=== PATIENT | male | born 1940 | race Caucasian/White ===

== ENCOUNTER 2017-01-25 01:44 | Observation (INO) | payer SELFPAY ==
[2017-01-25 01:53] VITALS: BMI 21.5
[2017-01-25] MEDS ORDERED: Morphine 2 mg/ml ISec IVP STA (01:58)
[2017-01-25] MEDS ORDERED: Pantoprazole 40 MG in Sodium Chloride 0.9% 100 ML IV STA (01:58)
--- NOTE | 2017-01-25 02:13 | ED PDOC ---
Arrival/HPI - General Chief Complaint: Abdominal Pain Time Seen by Provider: 01/25/17 01:46 Historian: Patient, Other - History of Present Illness Narrative History of Present Illness (Text): 01/25/17 01:52 76 year old male, presents to the Emergency department, accompanied by a family friend, with complaints of shortness of breath, which began 45 minutes prior to arrival. Friend also reports patient was at a barbeque earlier yesterday when he began experiencing abdominal pain. The patient denies any fever, back pain, chest pain, or any other complaints at this time. Time/Duration: 4-6 hours Symptom Onset: Sudden Symptom Course: Unchanged Activities at Onset: Rest Context: Home Past Medical History - Provider Review Nursing Documentation Reviewed: Yes - Psychiatric Hx Substance Use: No Family/Social History - Physician Review Nursing Documentation Reviewed: Yes Family/Social History: Unknown Family HX Smoking Status: Unknown If Ever Smoked Hx Alcohol Use: No Hx Substance Use: No Allergies/Home Meds Allergies/Adverse Reactions: Allergies No Known Allergies Allergy (Verified 01/25/17 01:53) Home Medications: Home Meds Medication Instructions Recorded Confirmed Unobtainable 01/25/17 01/25/17 Review of Systems - Physician Review All systems were reviewed & negative as marked: Yes - Review of Systems Constitutional: absent: Fevers Respiratory: SOB Cardiovascular: absent: Chest Pain Gastrointestinal: Abdominal Pain Musculoskeletal: absent: Back Pain Physical Exam Vital Signs Temp Pulse Resp BP Pulse Ox 01/25/17 04:54 57 L 17 127/80 98 01/25/17 01:53 97.4 F L 72 18 148/89 99 Temperature: Afebrile Blood Pressure: Normal Pulse: Regular Respiratory Rate: Normal Appearance: Positive for: Well-Appearing, Non-Toxic, Comfortable Pain Distress: None Mental Status: Positive for: Alert and Oriented X 3 - Systems Exam Head: Present: Atraumatic, Normocephalic Pupils: Present: PERRL Extroacular Muscles: Present: EOMI Conjunctiva: Present: Normal Mouth: Present: Moist Mucous Membranes Neck: Present: Normal Range of Motion Respiratory/Chest: Present: Clear to Auscultation. No: Respiratory Distress, Accessory Muscle Use Cardiovascular: Present: Regular Rate and Rhythm, Normal S1, S2. No: Murmurs Abdomen: Present: Tenderness (+ Tenderness to the RUQ ), Normal Bowel Sounds. No: Distention, Peritoneal Signs Back: Present: Normal Inspection Upper Extremity: Present: Normal Inspection. No: Cyanosis, Edema Lower Extremity: Present: Normal Inspection. No: Edema Neurological: Present: GCS=15, CN II-XII Intact, Speech Normal Skin: Present: Warm, Dry, Normal Color. No: Rashes Psychiatric: Present: Alert, Oriented x 3, Normal Insight, Normal Concentration Medical Decision Making ED Course and Treatment: 01/25/17 01:52 Impression: 76 year old male with shortness of breath and abdominal pain. Differential Diagnosis included but are not limited to: abdominal pain vs. cholecystitis vs. gastroenteritis Plan: -- EKG -- VBG -- Abd & Pelvis CT Scan -- Chest X-ray -- Labs -- Urinalysis -- Morphine, Pantoprazole, Zofran -- Reassess and disposition Progress Notes: 01/25/17 04:05 Reviewed radiology, CT Abdomen and Pelvis shows:1. There is cholelithiasis. No adjacent stranding or fluid. Correlate with physical exam. If there is clinical suspicion for acute cholecystitis, consider ultrasound. 2. There are bilateral renal cysts, including a 60 mm left renal cyst. 3. The prostate gland is enlarged. 01/25/17 04:[address] Elizondo, who is aware and agrees with plan. Accepts pt in to hospitalist service. Pt will go to [facility] observation for abdominal pain. assistant vice president notified. 01/25/17 04:26 Reviewed Chest X-Ray, shows no acute findings. \ - Lab Interpretations Lab Results: 01/25/17 02:15 01/25/17 02:15 Lab Results 01/25/17 02:47: Urine Color Yellow, Urine Appearance Clear, Urine pH 6.0, Ur Specific [place] 1.020, Urine Protein Trace H, Urine Glucose (UA) Negative, Urine Ketones Negative, Urine Blood Negative, Urine Nitrate Negative, Urine Bilirubin Negative, Urine Urobilinogen 0.2, Ur Leukocyte Esterase Negative, Urine RBC 0 - 2, Urine WBC 0 - 2, Ur Epithelial Cells 0 - 2 01/25/17 02:15: Iron 47, TIBC 249 L, % Saturation 19 L 01/25/17 02:15: Hepatitis A IgM Ab Negative, Hep Bs Antigen Negative, Hep B Core IgM Ab Negative, Hepatitis C Antibody Negative 01/25/17 02:15: TSH 3rd Generation 2.49 01/25/17 02:15: Hemoglobin A1c 4.7 01/25/17 02:15: Ferritin 105.0, Triglycerides 65, Cholesterol 145, LDL Cholesterol Direct 95, HDL Cholesterol 40, Vitamin B12 189 L, Folate 6.3 01/25/17 02:15: pO2 39, VBG pH 7.42, VBG pCO2 44.0, VBG HCO3 28.5 H, VBG Total CO2 29.9 H, VBG O2 Sat (Calc) 81.0 H, VBG Base Excess 3.4 H, VBG Potassium 4.2, Sodium 140.0, Chloride 107.0, Glucose 106, Lactate 1.9, FiO2 21.0, Venous Blood Potassium 4.2 01/25/17 02:15: Sodium 141, Chloride 106, Potassium 4.0, Carbon Dioxide 25, Anion Gap 14, BUN 26 H, Creatinine 1.9 H, Est GFR ( Amer) 42, Est GFR ( Non-Af Amer) 35, Random Glucose 101, Calcium 9.4, Total Bilirubin 0.5, AST 22, ALT 19, Alkaline Phosphatase 64, Lactate Dehydrogenase 274 L, Total Creatine Kinase 66, Troponin I < 0.01, Total Protein 7.2, Albumin 4.2, Globulin 3.0, Albumin/Globulin Ratio 1.4, Amylase 103, Lipase 302 H 01/25/17 02:15: PT 11.9 H, INR 1.10 H, APTT 25.9 01/25/17 02:15: WBC 5.0, RBC 4.61, Hgb 13.8 L, Hct 39.7 L, MCV 86.1, MCH 29.9, MCHC 34.8, RDW 13.2, Plt Count 116 L, MPV 10.7, Gran % 70.6 H, Lymph % (Auto) 22.2, [place] % (Auto) 5.6, Eos % (Auto) 1.2 L, Baso % (Auto) 0.4, Gran # 3.50, Lymph # 1.1 L, [place] # 0.3, Eos # 0.1, Baso # 0.02 I have reviewed the lab results: Yes - RAD Interpretation Narrative RAD Interpretations (Text): CT Abdomen and Pelvis shows: Lower thorax: No acute findings. ABDOMEN: Liver: No acute findings. Gallbladder and bile ducts: There is cholelithiasis. No adjacent stranding or fluid. Pancreas: No acute findings. No ductal dilation. Spleen: No acute findings. No splenomegaly. Adrenals: No acute findings. No mass. Kidneys and ureters: There are bilateral renal cysts, including a 60 mm left renal cyst. Stomach and bowel: No acute findings. No obstruction. No mucosal thickening. Appendix: No findings to suggest acute appendicitis. PELVIS: Bladder: No acute findings. No stones. Reproductive: The prostate gland is enlarged. ABDOMEN and PELVIS: Intraperitoneal space: No acute findings. No free air. No significant fluid collection. Bones/joints: No acute fracture. No dislocation. Soft tissues: No acute findings. Vasculature: No acute findings. No abdominal aortic aneurysm. Lymph nodes: No acute findings. No enlarged lymph nodes. IMPRESSION: 1. There is cholelithiasis. No adjacent stranding or fluid. Correlate with physical exam. If there is clinical suspicion for acute cholecystitis, consider ultrasound. 2. There are bilateral renal cysts, including a 60 mm left renal cyst. 3. The prostate gland is enlarged. Radiology Orders: 01/25/17 01:58 ABD & PELVIS W/O PO OR IV CONT [CT] Stat 01/25/17 02:07 CHEST ONE VIEW [RAD] Stat Software Reliability Engineer: Radiologist - EKG Interpretation Interpreted by ED Physician: Yes Type: 12 lead EKG - Medication Orders Current Medication Orders: Acetaminophen (Tylenol 325mg Tab) 650 mg PO Q6H PRN PRN Reason: Fever >100.4 F Al Hydrox/Mg Hydrox/Simethicone (Maalox Plus 30 Ml) 30 ml PO Q12H PRN PRN Reason: upset stomach Albuterol Sulfate (Albuterol 0.083% Inhal Feli (2.5 Mg/3 Ml) Ud) 2.5 mg IH Q2H PRN PRN Reason: Shortness of Breath Bismuth Subsalicylate (Pepto-Bismol) 262 mg PO Q12H PRN PRN Reason: upset stomach Famotidine (Pepcid) 20 mg PO BID [facility] Last Admin: 01/25/17 18:38 Dose: 20 mg Sodium Chloride (Sodium Chloride 0.9%) 1,000 mls @ 80 mls/hr IV .[id number] [facility] Last Admin: 01/25/17 18:38 Dose: 80 mls/hr Ondansetron HCl (Zofran Inj) 4 mg IVP Q6H PRN PRN Reason: Nausea/Vomiting Discontinued Medications Pantoprazole Sodium 40 mg/ (Sodium Chloride) 100 mls @ 400 mls/hr IV STAT STA Stop: 01/25/17 02:12 Last Admin: 01/25/17 02:19 Dose: 400 mls/hr Sodium Chloride (Sodium Chloride 0.9%) 1,000 mls @ 125 mls/hr IV .Q8H [facility] Last Admin: 01/25/17 05:38 Dose: 125 mls/hr Morphine Sulfate (Morphine) 2 mg IVP STAT STA Stop: 01/25/17 01:59 Last Admin: 01/25/17 02:20 Dose: 2 mg Re-Assess: SHELBY Pain Assessment Document 01/25/17 03:20 RD (Rec: 01/25/17 04:56 RD [id number]) Pain Reassessment Is this a pain reassessment? Yes Sleep Is patient sleeping during reassessment? No Presence of Pain Presence of Pain No Ondansetron HCl (Zofran Inj) 4 mg IVP STAT STA Stop: 01/25/17 01:59 Last Admin: 01/25/17 02:20 Dose: 4 mg - Scribe Statement The provider has reviewed the documentation as recorded by the Betheliberika Hein training under Joy Gage. Provider Scribe Attestation: All medical record entries made by the Scribe were at my direction and personally dictated by me. I have reviewed the chart and agree that the record accurately reflects my personal performance of the history, physical exam, medical decision making, and the department course for this patient. I have also personally directed, reviewed, and agree with the discharge instructions and disposition. Disposition/Present on Arrival - Present on Arrival Any Indicators Present on Arrival: No History of DVT/PE: No History of Uncontrolled Diabetes: No Urinary Catheter: No History of Decub. Ulcer: No History Surgical Site Infection Following: None - Disposition Have Diagnosis and Disposition been Completed?: Yes Diagnosis: Abdominal pain, acute Disposition: HOSPITALIZED Disposition Time: 04:25 Condition: GOOD
[2017-01-25 02:21] LABS: ADD MANUAL DIFF? NO
[2017-01-25 02:37] LABS: INR 1.1 (0.93-1.08); PARTIAL THROMBOPLASTIN TIME 25.9 Seconds (23.7-30.8)
[2017-01-25 02:41] LABS: BASO # 0.02 K/mm3 (0.0-2.0); BASO % 0.4 % (0.0-3.0); EOS # 0.1 (0.0-0.7); EOS % 1.2 % (1.5-5.0); GRAN % 70.6 % (50.0-68.0); HEMATOCRIT 39.7 % (42.0-52.0); LYMPH # 1.1 (1.2-3.4); LYMPH % 22.2 % (22.0-35.0); MEAN CELL VOLUME 86.1 fL (80.0-105.0); MEAN CORPUSCULAR HEMOGLOBIN 29.9 pg (25.0-35.0); MEAN CORPUSCULAR HGB CONC 34.8 g/dl (31.0-37.0); MEAN PLATELET VOLUME 10.7 fl (7.0-11.0); MONO # 0.3 (0.1-0.6); MONO % 5.6 % (1.0-6.0); PLATELET COUNT 116 10^3/uL (120.0-450.0); RED CELL DISTRIBUTION WIDTH 13.2 % (11.5-14.5)
[2017-01-25 02:49] LABS: ALB/GLOB RATIO 1.4 (1.1-1.8); ALKALINE PHOSPHATASE 64 U/L (38-133); ALT/SGPT 19 U/L (7-56); AMYLASE 103 U/L (35-125); AST/SGOT 22 U/L (15-59); BILIRUBIN,TOTAL 0.5 mg/dL (0.2-1.3); BLOOD UREA NITROGEN 26 mg/dL (7-21); CALCIUM 9.4 mg/dL (8.4-10.5); CARBON DIOXIDE 25 mmol/L (21-33); CHLORIDE 106 mmol/L (98-107); GFR AFRICAN-AMERICAN 42; GLUCOSE,RANDOM 101 mg/dL (70-110); LIPASE 302 U/L (23-300); SODIUM 141 mmol/L (132-148); TOTAL PROTEIN 7.2 g/dL (5.8-8.3)
[2017-01-25 02:52] LABS: VENOUS BLOOD GAS BASE EXCESS 3.4 mmol/L (0.0-2.0); VENOUS BLOOD PH 7.42 (7.32-7.43)
[2017-01-25 03:03] LABS: URINE BILIRUBIN NEGATIVE (NEGATIVE); URINE BLOOD NEGATIVE (NEGATIVE); URINE GLUCOSE (UA) NEGATIVE (NEGATIVE); URINE KETONE NEGATIVE (NEGATIVE); URINE LEUKOCYTE ESTERASE NEGATIVE Leu/uL (NEGATIVE); URINE PROTEIN TRACE mg/dL (<30 mg/dL); URINE UROBILINOGEN 0.2 E.U./dL (<1 E.U./dL)
[2017-01-25 03:09] LABS: TROPONIN I < 0.01 ng/mL
[2017-01-25 03:22] LABS: URINE APPEARANCE CLEAR (CLEAR); URINE COLOR YELLOW (YELLOW)
[2017-01-25 03:24] LABS: URINE EPITHELIAL CELLS 0 - 2 /hpf (0-5); URINE RBC 0 - 2 /hpf (0-2); URINE WBC 0 - 2 /hpf (0-6)
[2017-01-25] MEDS ORDERED: Albuterol 0.083% Inhal Sol (2.5 mg/3 mL) UD IH PRN (04:31)
[2017-01-25] MEDS ORDERED: Bismuth Subsalicylate 262 mg/15 ml Sus (240 ml) PO PRN (04:34)
[2017-01-25] MEDS ORDERED: Alum-Mag Hydrox-Simethicone Susp (30 mL) PO PRN (04:34)
--- NOTE | 2017-01-25 04:56 | CP.PCM.HP ---
History of Present Illness - History of Present Illness History of Present Illness: CC: weakness and abdominal pain This is a 76yo M w/ no PMhx on no medications, from [place] (only speaks dialect of [place] from [place]) who is coming to the hospital with acute abdominal pain since 2pm today after his [place] celebration at a picnic. Describes the pain as sharp in his RUQ but it has no passed on exam (just received morphine). He tried taking peptol bismol for the pain at home which helped slightly. He has no associated N/V/D, fevers/chills, COLE, SOB, dysuria/freq/urg, or lower extremity pain/swelling. The patient states he has been having some gait instability for the past few years, which he says interfers with his daily activities and he walks with a limp (no cane). Pmhx: Denies FamilyHx: denies Allergies: denies Surgeries: b/l hernia repair Meds: Denies Social: [place], just here for [place] for the first time to visit family Present on Admission - Present on Admission Any Indicators Present on Admission: No History of DVT/PE: No History of Uncontrolled Diabetes: No Urinary Catheter: No Decubitus Ulcer Present: No Past Patient History - Past Social History Smoking Status: Unknown If Ever Smoked - PSYCHIATRIC Hx Substance Use: No Meds Allergies/Adverse Reactions: Allergies Allergy/AdvReac Type Severity Reaction Status Date / Time No Known Allergies Allergy Verified 01/25/17 01:53 Physical Exam - Constitutional Appears: Well, Non-toxic - Head Exam Head Exam: ATRAUMATIC - Eye Exam Eye Exam: EOMI - ENT Exam ENT Exam: Mucous Membranes Moist - Neck Exam Neck exam: Positive for: Full Rom. Negative for: Lymphadenopathy, Tenderness - Respiratory Exam Respiratory Exam: Clear to Auscultation Bilateral, NORMAL BREATHING PATTERN. absent: Rales, Rhonchi, Wheezes - Cardiovascular Exam Cardiovascular Exam: REGULAR RHYTHM, +S1, +S2 - GI/Abdominal Exam GI & Abdominal Exam: Normal Bowel Sounds, Soft. absent: Organomegaly, Pulsatile Mass, Rebound, Rigid, Tenderness - Rectal Exam Rectal Exam: Deferred - Extremities Exam Extremities exam: Positive for: full ROM. Negative for: calf tenderness Additional comments: left knee is tender at joint lines, no swelling, no sign of active infection - Back Exam Back exam: NORMAL INSPECTION. absent: CVA tenderness (L), CVA tenderness (R) - Neurological Exam Neurological exam: Alert, CN II-XII Intact, Oriented x3 - Psychiatric Exam Psychiatric exam: Normal Affect - Skin Skin Exam: Warm Results - Vital Signs Recent Vital Signs: Last Vital Signs Temp 97.4 F L 01/25/17 01:53 Pulse 72 01/25/17 01:53 Resp 18 01/25/17 01:53 BP 148/89 01/25/17 01:53 Pulse Ox 99 01/25/17 01:53 - Labs Result Diagrams: 01/25/17 02:15 01/25/17 02:15 Labs: Laboratory Results - last 24 hr 01/25/17 01/25/17 01/25/17 02:15 02:15 02:15 WBC 5.0 RBC 4.61 Hgb 13.8 L Hct 39.7 L MCV 86.1 MCH 29.9 MCHC 34.8 RDW 13.2 Plt Count 116 L MPV 10.7 Gran % 70.6 H Lymph % (Auto) 22.2 [place] % (Auto) 5.6 Eos % (Auto) 1.2 L Baso % (Auto) 0.4 Gran # 3.50 Lymph # 1.1 L [place] # 0.3 Eos # 0.1 Baso # 0.02 PT 11.9 H INR 1.10 H APTT 25.9 pO2 VBG pH VBG pCO2 VBG HCO3 VBG Total CO2 VBG O2 Sat (Calc) VBG Base Excess VBG Potassium Sodium 141 Chloride 106 Glucose Lactate FiO2 Potassium 4.0 Carbon Dioxide 25 Anion Gap 14 BUN 26 H Creatinine 1.9 H Est GFR ( Amer) 42 Est GFR (Non-Af Amer) 35 Random Glucose 101 Calcium 9.4 Total Bilirubin 0.5 AST 22 ALT 19 Alkaline Phosphatase 64 Lactate Dehydrogenase 274 L Total Creatine Kinase 66 Troponin I < 0.01 Total Protein 7.2 Albumin 4.2 Globulin 3.0 Albumin/Globulin Ratio 1.4 Amylase 103 Lipase 302 H Venous Blood Potassium Urine Color Urine Appearance Urine pH Ur Specific [place] Urine Protein Urine Glucose (UA) Urine Ketones Urine Blood Urine Nitrate Urine Bilirubin Urine Urobilinogen Ur Leukocyte Esterase Urine RBC Urine WBC Ur Epithelial Cells 01/25/17 01/25/17 02:15 02:47 WBC RBC Hgb Hct MCV MCH MCHC RDW Plt Count MPV Gran % Lymph % (Auto) [place] % (Auto) Eos % (Auto) Baso % (Auto) Gran # Lymph # [place] # Eos # Baso # PT INR APTT pO2 39 VBG pH 7.42 VBG pCO2 44.0 VBG HCO3 28.5 H VBG Total CO2 29.9 H VBG O2 Sat (Calc) 81.0 H VBG Base Excess 3.4 H VBG Potassium 4.2 Sodium 140.0 Chloride 107.0 Glucose 106 Lactate 1.9 FiO2 21.0 Potassium Carbon Dioxide Anion Gap BUN Creatinine Est GFR ( Amer) Est GFR (Non-Af Amer) Random Glucose Calcium Total Bilirubin AST ALT Alkaline Phosphatase Lactate Dehydrogenase Total Creatine Kinase Troponin I Total Protein Albumin Globulin Albumin/Globulin Ratio Amylase Lipase Venous Blood Potassium 4.2 Urine Color Yellow Urine Appearance Clear Urine pH 6.0 Ur Specific [place] 1.020 Urine Protein Trace H Urine Glucose (UA) Negative Urine Ketones Negative Urine Blood Negative Urine Nitrate Negative Urine Bilirubin Negative Urine Urobilinogen 0.2 Ur Leukocyte Esterase Negative Urine RBC 0 - 2 Urine WBC 0 - 2 Ur Epithelial Cells 0 - 2 Assessment & Plan - Assessment and Plan (Free Text) Assessment: 76yo M admitted for Abdominal Pain Abdominal Pain -CT showed Cholethiasis -f/u abdominal ultrasound -pain control -patient has no admittable history of DM, HTN, HLD or even family history; f/u HbA1C, Lipid Panel, TSH -all labs WNL JOHN -creatinine 1.9, BUN elevated as well -no Hx of CHF -patient has been fasting until today; will rehydrate gently and re-check Proph -SCD -Incentive Spirometer -OOB encouraged -Heart Healthy Diet -Pepcid/Maalax/Peptol Bismol Case Discussed w/ Dr. Caro Peralta PGY1 Night Float Decision To Admit - Pt Status Changed To: Hospital Disposition Of: Observation - . Bed Request Type: Med/Surg Admitting Physician: Marck Elizondo MD
[2017-01-25] MEDS ORDERED: Sodium Chloride 0.9% 1,000 ML IV SCH ×2 (05:00→14:59)
--- NOTE | 2017-01-25 05:46 | US ---
EXAM: US Abdomen Complete CLINICAL HISTORY: 76 years old, male; Pain; Abdominal pain; Generalized; Additional info: Cholelethiasis TECHNIQUE: Real-time ultrasound of the abdomen (complete) with image documentation. COMPARISON: CT - ABD PELVIS W/O PO OR IV CONT 01/25/2017 3:20:21 AM FINDINGS: Liver: Normal echogenicity. Two cysts, larger measuring up to 2.2 cm. No intrahepatic bile duct dilatation. Gallbladder: Gallstones. No wall thickening. No pericholecystic fluid. No sonographic Hu's sign. Common bile duct: Up to 0.63 cm in diameter. No stones. Pancreas: Unremarkable as visualized. Kidneys: Normal echogenicity. Several cysts, largest located on LEFT and septated, measuring up to 7.1 cm. No hydronephrosis. Spleen: No splenomegaly. Aorta: Unremarkable. No aneurysm. Inferior vena cava: Unremarkable. Free fluid: No significant free fluid. IMPRESSION: 1. Cholelithiasis. 2. Incidental/non-acute findings are described above.
[2017-01-25 05:50] LABS: IRON 47 ug/dL (45-180)
--- NOTE | 2017-01-25 07:36 | CT ---
PROCEDURE: CT Abdomen and Pelvis without intravenous contrast HISTORY: abd pain COMPARISON: None. TECHNIQUE: Technique. Contrast Dose: Radiation dose: Total exam DLP = 496 mGy-cm. This CT exam was performed using one or more of the following dose reduction techniques: Automated exposure control, adjustment of the mA and/or kV according to patient size, and/or use of iterative reconstruction technique. FINDINGS: LOWER THORAX: Bibasilar interstitial changes/discoid atelectasis.. LIVER: Scattered cysts.. No gross lesion or ductal dilatation. GALLBLADDER AND BILE DUCTS: Cholelithiasis.. PANCREAS: Unremarkable. No gross lesion or ductal dilatation. SPLEEN: Unremarkable. ADRENALS: Unremarkable. No mass. KIDNEYS AND URETERS: Bilateral renal cysts largest measuring up to 6 centimeters in the left kidney.. No hydronephrosis. No solid mass. VASCULATURE: Unremarkable. No aortic aneurysm. BOWEL: Unremarkable. No obstruction. No gross mural thickening. APPENDIX: Unremarkable. Normal appendix. PERITONEUM: Unremarkable. No free fluid. No free air. LYMPH NODES: Unremarkable. No enlarged lymph nodes. BLADDER: Unremarkable. REPRODUCTIVE: Prostate enlargement.. BONES: No acute fracture. OTHER FINDINGS: None. IMPRESSION: Cholelithiasis. Scattered hepatic and renal cysts.
[2017-01-25 09:00] LABS: BLOOD UREA NITROGEN 24 mg/dL (7-21); CARBON DIOXIDE 25 mmol/L (21-33); CHLORIDE 107 mmol/L (98-107); GFR AFRICAN-AMERICAN 48; GLUCOSE,RANDOM 87 mg/dL (70-110); POTASSIUM 4.2 mmol/L (3.6-5.0); SODIUM 141 mmol/L (132-148)
[2017-01-25 09:14] LABS: TROPONIN I < 0.01 ng/mL
--- NOTE | 2017-01-25 09:24 | RAD ---
PROCEDURE: CHEST RADIOGRAPH, 1 VIEW HISTORY: pain COMPARISON: None available. FINDINGS: LUNGS: Clear. PLEURA: No pneumothorax or pleural fluid seen. CARDIOVASCULAR: Normal. OSSEOUS STRUCTURES: No significant abnormalities. VISUALIZED UPPER ABDOMEN: Normal. OTHER FINDINGS: None. IMPRESSION: No active disease.
[2017-01-25 14:39] LABS: CALCIUM 8.6 mg/dL (8.4-10.5); POTASSIUM 4.2 mmol/L (3.6-5.0)
[2017-01-25 16:00] LABS: FOLATE 6.3 ng/mL
--- NOTE | 2017-01-25 16:52 | CARD ---
APPROVED REPORT EKG Measurement Heart [id number] <Conclusion> Normal sinus rhythm Minimal voltage criteria for LVH, may be normal variant Borderline ECG
[2017-01-26 07:25] LABS: ADD MANUAL DIFF? NO
[2017-01-26 07:29] LABS: BASO # 0.02 K/mm3 (0.0-2.0); BASO % 0.5 % (0.0-3.0); EOS # 0.1 (0.0-0.7); EOS % 2.9 % (1.5-5.0); GRAN # 2.65 (1.4-6.5); GRAN % 59.8 % (50.0-68.0); HEMATOCRIT 38.4 % (42.0-52.0); LYMPH # 1.4 (1.2-3.4); LYMPH % 31.2 % (22.0-35.0); MEAN CELL VOLUME 86.7 fL (80.0-105.0); MEAN CORPUSCULAR HEMOGLOBIN 29.3 pg (25.0-35.0); MEAN CORPUSCULAR HGB CONC 33.9 g/dl (31.0-37.0); MEAN PLATELET VOLUME 10.4 fl (7.0-11.0); MONO # 0.3 (0.1-0.6); MONO % 5.6 % (1.0-6.0); PLATELET COUNT 100 10^3/uL (120.0-450.0); RED CELL DISTRIBUTION WIDTH 13.2 % (11.5-14.5); WHITE BLOOD COUNT 4.4 10^3/ul (4.5-11.0)
[2017-01-26 07:42] LABS: ALB/GLOB RATIO 1.3 (1.1-1.8); BILIRUBIN,TOTAL 0.7 mg/dL (0.2-1.3); CALCIUM 8.7 mg/dL (8.4-10.5); MAGNESIUM 1.9 mg/dL (1.7-2.2); PHOSPHOROUS 2.9 mg/dL (2.5-4.5); POTASSIUM 4.5 mmol/L (3.6-5.0)
[2017-01-26 08:25] VITALS: BP 92/61; PULSE 54; RESP 18; TEMP 97.8; O2SAT 97
--- NOTE | 2017-01-26 12:20 | CP.PCM.DIS ---
<William Phillips - Last Filed: 01/26/17 12:24> Provider - Provider Date of Admission: 01/25/17 04:33 Attending physician: Emerald Amin MD Consults: None Time Spent in preparation of Discharge (in minutes): 45 Hospital Course - Lab Results Lab Results: Micro Results 01/25/17 05:15 Blood-Venous Blood Culture - Preliminary NO GROWTH AFTER 24 HOURS 01/25/17 05:00 Blood-Venous Blood Culture - Preliminary NO GROWTH AFTER 24 HOURS Most Recent Lab Values WBC 4.4 10^3/ul (4.5-11.0) L 01/26/17 07:00 RBC 4.43 10^6/uL (3.5-6.1) 01/26/17 07:00 Hgb 13.0 gm/dL (14.0-18.0) L 01/26/17 07:00 Hct 38.4 % (42.0-52.0) L 01/26/17 07:00 MCV 86.7 fL (80.0-105.0) 01/26/17 07:00 MCH 29.3 pg (25.0-35.0) 01/26/17 07:00 MCHC 33.9 g/dl (31.0-37.0) 01/26/17 07:00 RDW 13.2 % (11.5-14.5) 01/26/17 07:00 Plt Count 100 10^3/uL (120.0-450.0) L 01/26/17 07:00 MPV 10.4 fl (7.0-11.0) 01/26/17 07:00 Gran % 59.8 % (50.0-68.0) 01/26/17 07:00 Lymph % (Auto) 31.2 % (22.0-35.0) 01/26/17 07:00 Cottle % (Auto) 5.6 % (1.0-6.0) 01/26/17 07:00 Eos % (Auto) 2.9 % (1.5-5.0) 01/26/17 07:00 Baso % (Auto) 0.5 % (0.0-3.0) 01/26/17 07:00 Gran # 2.65 (1.4-6.5) 01/26/17 07:00 Lymph # 1.4 (1.2-3.4) 01/26/17 07:00 Cottle # 0.3 (0.1-0.6) 01/26/17 07:00 Eos # 0.1 (0.0-0.7) 01/26/17 07:00 Baso # 0.02 K/mm3 (0.0-2.0) 01/26/17 07:00 PT 11.9 Seconds (9.9-11.8) H 01/25/17 02:15 INR 1.10 (0.93-1.08) H 01/25/17 02:15 APTT 25.9 Seconds (23.7-30.8) 01/25/17 02:15 pO2 39 mm/Hg (30-55) 01/25/17 02:15 VBG pH 7.42 (7.32-7.43) 01/25/17 02:15 VBG pCO2 44.0 (40-60) 01/25/17 02:15 VBG HCO3 28.5 mmol/l (21-28) H 01/25/17 02:15 VBG Total CO2 29.9 mmol.L (22-28) H 01/25/17 02:15 VBG O2 Sat (Calc) 81.0 % (40-65) H 01/25/17 02:15 VBG Base Excess 3.4 mmol/L (0.0-2.0) H 01/25/17 02:15 VBG Potassium 4.2 mmol/L (3.6-5.2) 01/25/17 02:15 Sodium 140.0 mmol/L (132-148) 01/25/17 02:15 Chloride 107.0 mmol/L (98-107) 01/25/17 02:15 Glucose 106 mg/dl (75-110) 01/25/17 02:15 Lactate 1.9 mmol/L (0.7-2.1) 01/25/17 02:15 FiO2 21.0 % 01/25/17 02:15 Sodium 143 mmol/L (132-148) 01/26/17 07:00 Potassium 4.5 mmol/L (3.6-5.0) 01/26/17 07:00 Chloride 110 mmol/L (98-107) H 01/26/17 07:00 Carbon Dioxide 24 mmol/L (21-33) 01/26/17 07:00 Anion Gap 14 (10-20) 01/26/17 07:00 BUN 20 mg/dL (7-21) 01/26/17 07:00 Creatinine 1.7 mg/dL (0.5-1.4) H 01/26/17 07:00 Est GFR ( Amer) 48 01/26/17 07:00 Est GFR (Non-Af Amer) 39 01/26/17 07:00 Random Glucose 92 mg/dL (70-110) 01/26/17 07:00 Hemoglobin A1c 4.7 % (4.2-6.5) 01/25/17 02:15 Calcium 8.7 mg/dL (8.4-10.5) 01/26/17 07:00 Phosphorus 2.9 mg/dL (2.5-4.5) 01/26/17 07:00 Magnesium 1.9 mg/dL (1.7-2.2) 01/26/17 07:00 Iron 47 ug/dL (45-180) 01/25/17 02:15 TIBC 249 ug/dL (261-462) L 01/25/17 02:15 % Saturation 19 % (20-55) L 01/25/17 02:15 Ferritin 105.0 ng/mL 01/25/17 02:15 Total Bilirubin 0.7 mg/dL (0.2-1.3) 01/26/17 07:00 AST 16 U/L (15-59) 01/26/17 07:00 ALT 18 U/L (7-56) 01/26/17 07:00 Alkaline Phosphatase 49 U/L (38-133) 01/26/17 07:00 Lactate Dehydrogenase 282 U/L (333-699) L 01/25/17 09:00 Total Creatine Kinase 60 U/L (35-230) 01/25/17 09:00 Troponin I < 0.01 ng/mL 01/25/17 09:00 Total Protein 6.0 g/dL (5.8-8.3) 01/26/17 07:00 Albumin 3.4 g/dL (3.0-4.8) 01/26/17 07:00 Globulin 2.6 gm/dL 01/26/17 07:00 Albumin/Globulin Ratio 1.3 (1.1-1.8) 01/26/17 07:00 Triglycerides 65 mg/dL (35-160) 01/25/17 02:15 Cholesterol 145 mg/dL (130-200) 01/25/17 02:15 LDL Cholesterol Direct 95 mg/dL (0-129) 01/25/17 02:15 HDL Cholesterol 40 mg/dL (29-60) 01/25/17 02:15 Amylase 103 U/L (35-125) 01/25/17 02:15 Lipase 302 U/L (23-300) H 01/25/17 02:15 Vitamin B12 189 pg/mL (239-931) L 01/25/17 02:15 Folate 6.3 ng/mL 01/25/17 02:15 TSH 3rd Generation 2.49 mIU/mL (0.46-4.68) 01/25/17 02:15 Venous Blood Potassium 4.2 mmol/L (3.6-5.2) 01/25/17 02:15 Urine Color Yellow (YELLOW) 01/25/17 02:47 Urine Appearance Clear (CLEAR) 01/25/17 02:47 Urine pH 6.0 (4.7-8.0) 01/25/17 02:47 Ur Specific [place] 1.020 (1.005-1.035) 01/25/17 02:47 Urine Protein Trace mg/dL (<30 mg/dL) H 01/25/17 02:47 Urine Glucose (UA) Negative mg/dL (NEGATIVE) 01/25/17 02:47 Urine Ketones Negative mg/dL (NEGATIVE) 01/25/17 02:47 Urine Blood Negative (NEGATIVE) 01/25/17 02:47 Urine Nitrate Negative (NEGATIVE) 01/25/17 02:47 Urine Bilirubin Negative (NEGATIVE) 01/25/17 02:47 Urine Urobilinogen 0.2 E.U./dL (<1 E.U./dL) 01/25/17 02:47 Ur Leukocyte Esterase Negative Nay/uL (NEGATIVE) 01/25/17 02:47 Urine RBC 0 - 2 /hpf (0-2) 01/25/17 02:47 Urine WBC 0 - 2 /hpf (0-6) 01/25/17 02:47 Ur Epithelial Cells 0 - 2 /hpf (0-5) 01/25/17 02:47 Hepatitis A IgM Ab Negative (NEGATIVE) 01/25/17 02:15 Hep Bs Antigen Negative (NEGATIVE) 01/25/17 02:15 Hep B Core IgM Ab Negative (NEGATIVE) 01/25/17 02:15 Hepatitis C Antibody Negative (NEGATIVE) 01/25/17 02:15 - Hospital Course Hospital Course: Attending - Eloisa Admit date 01/25 DC date- 01/26 Discharge dx 1. CKD 2. Cholelithiasis Consults None Procedures None No complications DC home- stable HPI: see h/p Labs: see lab data Hospital course This is a 76 yo male admitted for Abdominal Pain Abdominal Pain -CT showed Cholelithiasis with no cholecystitis -pain control -patient has no admittable history of DM, HTN, HLD or even family history -all labs WNL JOHN -creatinine 1.9, BUN elevated as well>> trended down to 1.7 -likely baseline -likely hx of CKD -no Hx of CHF -patient has been fasting until admission; will rehydrate gently and re-check -pt given NS -encouraged to avoid NSAIDs in future Proph -SCD -Incentive Spirometer -OOB encouraged -Heart Healthy Diet -Pepcid/Maalax/Peptol Bismol DC meds None DC instructions Please f/u with PMD within 3 days. Avoid NSAIDS. Return if condition worsens. - Date & Time of H&P Date of H&P: 01/25/17 Time of H&P: 04:52 Discharge Exam - Head Exam Head Exam: ATRAUMATIC - Eye Exam Eye Exam: EOMI - ENT Exam ENT Exam: Mucous Membranes Moist - Neck Exam Neck exam: Full Rom, Normal Inspection - Respiratory Exam Respiratory Exam: NORMAL BREATHING PATTERN, UNREMARKABLE - Cardiovascular Exam Cardiovascular Exam: +S1, +S2 - GI/Abdominal Exam GI & Abdominal Exam: Normal Bowel Sounds - Extremities Exam Extremities exam: full ROM, normal inspection - Back Exam Back exam: NORMAL INSPECTION - Neurological Exam Neurological exam: Alert, Oriented x3 - Psychiatric Exam Psychiatric exam: Normal Affect, Normal Mood - Skin Skin Exam: Dry, Intact, Normal Color, Warm Discharge Plan - Follow Up Plan Condition: STABLE Disposition: HOME/ ROUTINE Instructions: Acute Abdominal Pain (DC), Acute Abdominal Pain (GEN) Additional Instructions: Doctor recommends patient does not take Ibuprofen. <Eloisa LUQUE,Emerald - Last Filed: 01/27/17 09:11> Provider - Provider Date of Admission: 01/25/17 04:33 Attending physician: Emerald Amin MD Hospital Course - Lab Results Lab Results: Micro Results 01/25/17 05:00 Blood-Venous Blood Culture - Preliminary NO GROWTH AFTER 48 HOURS 01/25/17 05:15 Blood-Venous Blood Culture - Preliminary NO GROWTH AFTER 24 HOURS Most Recent Lab Values WBC 4.4 10^3/ul (4.5-11.0) L 01/26/17 07:00 RBC 4.43 10^6/uL (3.5-6.1) 01/26/17 07:00 Hgb 13.0 gm/dL (14.0-18.0) L 01/26/17 07:00 Hct 38.4 % (42.0-52.0) L 01/26/17 07:00 MCV 86.7 fL (80.0-105.0) 01/26/17 07:00 MCH 29.3 pg (25.0-35.0) 01/26/17 07:00 MCHC 33.9 g/dl (31.0-37.0) 01/26/17 07:00 RDW 13.2 % (11.5-14.5) 01/26/17 07:00 Plt Count 100 10^3/uL (120.0-450.0) L 01/26/17 07:00 MPV 10.4 fl (7.0-11.0) 01/26/17 07:00 Gran % 59.8 % (50.0-68.0) 01/26/17 07:00 Lymph % (Auto) 31.2 % (22.0-35.0) 01/26/17 07:00 Cottle % (Auto) 5.6 % (1.0-6.0) 01/26/17 07:00 Eos % (Auto) 2.9 % (1.5-5.0) 01/26/17 07:00 Baso % (Auto) 0.5 % (0.0-3.0) 01/26/17 07:00 Gran # 2.65 (1.4-6.5) 01/26/17 07:00 Lymph # 1.4 (1.2-3.4) 01/26/17 07:00 Cottle # 0.3 (0.1-0.6) 01/26/17 07:00 Eos # 0.1 (0.0-0.7) 01/26/17 07:00 Baso # 0.02 K/mm3 (0.0-2.0) 01/26/17 07:00 PT 11.9 Seconds (9.9-11.8) H 01/25/17 02:15 INR 1.10 (0.93-1.08) H 01/25/17 02:15 APTT 25.9 Seconds (23.7-30.8) 01/25/17 02:15 pO2 39 mm/Hg (30-55) 01/25/17 02:15 VBG pH 7.42 (7.32-7.43) 01/25/17 02:15 VBG pCO2 44.0 (40-60) 01/25/17 02:15 VBG HCO3 28.5 mmol/l (21-28) H 01/25/17 02:15 VBG Total CO2 29.9 mmol.L (22-28) H 01/25/17 02:15 VBG O2 Sat (Calc) 81.0 % (40-65) H 01/25/17 02:15 VBG Base Excess 3.4 mmol/L (0.0-2.0) H 01/25/17 02:15 VBG Potassium 4.2 mmol/L (3.6-5.2) 01/25/17 02:15 Sodium 140.0 mmol/L (132-148) 01/25/17 02:15 Chloride 107.0 mmol/L (98-107) 01/25/17 02:15 Glucose 106 mg/dl (75-110) 01/25/17 02:15 Lactate 1.9 mmol/L (0.7-2.1) 01/25/17 02:15 FiO2 21.0 % 01/25/17 02:15 Sodium 143 mmol/L (132-148) 01/26/17 07:00 Potassium 4.5 mmol/L (3.6-5.0) 01/26/17 07:00 Chloride 110 mmol/L (98-107) H 01/26/17 07:00 Carbon Dioxide 24 mmol/L (21-33) 01/26/17 07:00 Anion Gap 14 (10-20) 01/26/17 07:00 BUN 20 mg/dL (7-21) 01/26/17 07:00 Creatinine 1.7 mg/dL (0.5-1.4) H 01/26/17 07:00 Est GFR ( Amer) 48 01/26/17 07:00 Est GFR (Non-Af Amer) 39 01/26/17 07:00 Random Glucose 92 mg/dL (70-110) 01/26/17 07:00 Hemoglobin A1c 4.7 % (4.2-6.5) 01/25/17 02:15 Calcium 8.7 mg/dL (8.4-10.5) 01/26/17 07:00 Phosphorus 2.9 mg/dL (2.5-4.5) 01/26/17 07:00 Magnesium 1.9 mg/dL (1.7-2.2) 01/26/17 07:00 Iron 47 ug/dL (45-180) 01/25/17 02:15 TIBC 249 ug/dL (261-462) L 01/25/17 02:15 % Saturation 19 % (20-55) L 01/25/17 02:15 Ferritin 105.0 ng/mL 01/25/17 02:15 Total Bilirubin 0.7 mg/dL (0.2-1.3) 01/26/17 07:00 AST 16 U/L (15-59) 01/26/17 07:00 ALT 18 U/L (7-56) 01/26/17 07:00 Alkaline Phosphatase 49 U/L (38-133) 01/26/17 07:00 Lactate Dehydrogenase 282 U/L (333-699) L 01/25/17 09:00 Total Creatine Kinase 60 U/L (35-230) 01/25/17 09:00 Troponin I < 0.01 ng/mL 01/25/17 09:00 Total Protein 6.0 g/dL (5.8-8.3) 01/26/17 07:00 Albumin 3.4 g/dL (3.0-4.8) 01/26/17 07:00 Globulin 2.6 gm/dL 01/26/17 07:00 Albumin/Globulin Ratio 1.3 (1.1-1.8) 01/26/17 07:00 Triglycerides 65 mg/dL (35-160) 01/25/17 02:15 Cholesterol 145 mg/dL (130-200) 01/25/17 02:15 LDL Cholesterol Direct 95 mg/dL (0-129) 01/25/17 02:15 HDL Cholesterol 40 mg/dL (29-60) 01/25/17 02:15 Amylase 103 U/L (35-125) 01/25/17 02:15 Lipase 302 U/L (23-300) H 01/25/17 02:15 Vitamin B12 189 pg/mL (239-931) L 01/25/17 02:15 Folate 6.3 ng/mL 01/25/17 02:15 TSH 3rd Generation 2.49 mIU/mL (0.46-4.68) 01/25/17 02:15 Venous Blood Potassium 4.2 mmol/L (3.6-5.2) 01/25/17 02:15 Urine Color Yellow (YELLOW) 01/25/17 02:47 Urine Appearance Clear (CLEAR) 01/25/17 02:47 Urine pH 6.0 (4.7-8.0) 01/25/17 02:47 Ur Specific [place] 1.020 (1.005-1.035) 01/25/17 02:47 Urine Protein Trace mg/dL (<30 mg/dL) H 01/25/17 02:47 Urine Glucose (UA) Negative mg/dL (NEGATIVE) 01/25/17 02:47 Urine Ketones Negative mg/dL (NEGATIVE) 01/25/17 02:47 Urine Blood Negative (NEGATIVE) 01/25/17 02:47 Urine Nitrate Negative (NEGATIVE) 01/25/17 02:47 Urine Bilirubin Negative (NEGATIVE) 01/25/17 02:47 Urine Urobilinogen 0.2 E.U./dL (<1 E.U./dL) 01/25/17 02:47 Ur Leukocyte Esterase Negative Nay/uL (NEGATIVE) 01/25/17 02:47 Urine RBC 0 - 2 /hpf (0-2) 01/25/17 02:47 Urine WBC 0 - 2 /hpf (0-6) 01/25/17 02:47 Ur Epithelial Cells 0 - 2 /hpf (0-5) 01/25/17 02:47 Hepatitis A IgM Ab Negative (NEGATIVE) 01/25/17 02:15 Hep Bs Antigen Negative (NEGATIVE) 01/25/17 02:15 Hep B Core IgM Ab Negative (NEGATIVE) 01/25/17 02:15 Hepatitis C Antibody Negative (NEGATIVE) 01/25/17 02:15 Attending/Attestation - Attestation I have personally seen and examined this patient.: Yes I have reviewed all pertinent clinical information, including history, physical exam and plan: Yes Notes (Text): 01/27/17 09:08 Patient was seen and examined with phlebotomist medical lab assistant .Agreed with resident assessment and plan. 76 yrs old male with no PMH wasa admitted with abdominal pain , was found to have gall stone and dehydration.LFT were normal.There was no evidence of cholycystitis.Patient symptoms improved quickly, his creatinin came down to 1.7 , most likely has stage III CKD and this is his base line.Patient is tolerating diet, planning [place] and will plan for elective cholycystectomy over there, patient was advised not to take NSAID. Management plan was discussed in detail with patient and family. Education was provided.
== END 2017-01-26 13:47 | disposition home or self-care (01) ==
LOC: ED 01:44 → ERH 04:33 → 5RSO 06:45
PROVIDERS: ADMIT Internal Medicine; ATTEND Internal Medicine
DX: K80.20 Calculus of gallbladder without cholecystitis without obstruction (principal); E86.0 Dehydration; N18.3 Chronic kidney disease, stage 3 (moderate); N28.1 Cyst of kidney, acquired; N40.0 Benign prostatic hyperplasia without lower urinary tract symptoms; R26.9 Unspecified abnormalities of gait and mobility
CPT/HCPCS: 36415; 71010; 74176; 76700; 80053; 80061; 80074; 81001; 82150; 82550; 82607; 82728; 82746; 82803; 83036; 83540; 83550; 83615; 83690; 83735; 84100; 84443; 84484; 85025; 85610; 85730; 87040; 93005; 96374; 96375; 97116; 97162; 99284; C9113; G0378; G8978; G8979; G8980; J2270; J2405; J7040